=== PATIENT | female | born 1970 | race Two or more races ===

== ENCOUNTER 2023-08-02 09:32 | Emergency (ER) | payer MEDICAID, OTHER ==
[~2023-08-02] VITALS: Ht 154.9 cm; Wt 66.4 kg
[2023-08-02 10:00] LABS: Basophils # (auto) 0 10 ^3/uL (0-0.2); Basophils % (auto) 0.5 % (0.0-2.0); Eosinophils # (auto) 0.1 10 ^3/uL (0-0.8); Eosinophils % (auto) 1.3 % (0.0-7.0); Hemoglobin 12.7 g/dL (12.2-16.2); Lymphocytes # (auto) 2.3 10 ^3/uL (0.4-5.4); Lymphocytes % (auto) 50.2 % (10.0-50.0); Mean Corpuscular Hemoglobin 29.8 pg (28.0-32.0); Mean Corpuscular Hgb Conc. 32.7 g/dL (32.0-36.0); Mean Corpuscular Volume 91.3 fL (80.0-100.0); Monocytes # (auto) 0.4 10 ^3/uL (0-1.3); Neutrophils # (auto) 1.7 10 ^3/uL (1.6-8.6); Red Blood Cells 4.27 10^6/uL (4.0-5.20); White Blood Cell 4.5 10^3/uL (4.4-10.8)
[2023-08-02 10:27] LABS: Alanine Aminotransferase 35 U/L (7-40); Albumin 4.2 g/dL (3.2-4.8); Alkaline Phosphatase 77 U/L (46-116); Anion Gap 6 (5-15); Aspartate Aminotransferase 51 U/L (13-40); BUN/Creatinine Ratio 11.4 (10.0-20.0); Blood Urea Nitrogen 9 mg/dL (9-23); Carbon Dioxide 31 mmol/L (20-30); Chloride 105 mmol/L (98-107); Glucose 121 mg/dL (74-106); Potassium 3.8 mmol/L (3.5-5.1); Sodium 142 mmol/L (136-145)
[2023-08-02 10:28] LABS: Bilirubin, Total 0.3 mg/dL (0.2-1.0); Total Protein 7.2 g/dL (5.7-8.2)
[2023-08-02 11:12] LABS: Urine Bacteria FEW /hpf (None Seen); Urine Blood Negative /uL (Negative); Urine Clarity HAZY (Clear); Urine Color Yellow (Yellow); Urine Protein, UAD 1+ (Negative); Urine Specific Gravity 1.019 (1.001-1.035); Urine Urobilinogen Normal (Negative); Urine WBC 189 /hpf (0 - 5)
[2023-08-02] MEDS ORDERED: NITR-87 PO (12:00)
[2023-08-02] MEDS ORDERED: ZOFR4T PO (12:00)
[2023-08-02 12:44] VITALS: BP 132/71; PULSE 71; RESP 74; TEMP 98.2; O2SAT 96
== END 2023-08-02 12:54 | disposition home or self-care (01) ==
LOC: ER 09:32
DX: A08.4 Viral intestinal infection, unspecified (principal); N39.0 Urinary tract infection, site not specified
CPT/HCPCS: 36415; 80053; 81001; 85025